=== PATIENT | male | born 1970 ===

== ENCOUNTER 2021-02-05 08:58 | Outpatient (CLI) | payer OTHER | END 2021-02-05 09:17 | disposition home or self-care (01) | LOC: RAD 08:58 | PROVIDERS: ATTEND Orthopaedic Surgery | DX: M86.062 Acute hematogenous osteomyelitis, left tibia and fibula (principal) ==

== ENCOUNTER 2021-06-18 07:40 | Outpatient (CLI) | payer OTHER | END 2021-06-18 07:55 | disposition home or self-care (01) | LOC: RAD 07:40 | PROVIDERS: ATTEND Orthopaedic Surgery | DX: M86.062 Acute hematogenous osteomyelitis, left tibia and fibula (principal); D63.8 Anemia in other chronic diseases classified elsewhere ==